=== PATIENT | female | born 1975 | race Caucasian/White ===

== ENCOUNTER → 2018-01-20 16:24 | Outpatient (CLI) | payer MEDICAID, SELFPAY ==
[2018-01-20 17:52] LABS: Hematocrit 43.4 % (37-47); Hemoglobin 14.5 g/dl (12.0-15.0); Mean Corp Hgb Conc 33.4 g/gl (32-36); Mean Corpuscular Hgb 34.5 pg (27.0-32.0); Mean Corpuscular Volume 103.3 fL (81-99); Mean Platelet Vol. 9.4 fl (6.2-12.0); Platelet Count 340 K/mm3 (150-450); RBC Distribution Width CV 13.3 % (11.6-14.6); White Blood Count 10.5 K/mm3 (4.4-11.0)
[2018-01-20 17:56] LABS: Scan Indicated on CBC? Y/N NO
[2018-01-20 18:27] LABS: AST(SGOT) 20 U/L (15-37); Alanine Aminotransfer ALT/SGPT 25 U/L (13-56); Albumin, Serum 4.3 g/dL (3.2-5.0); Alkaline Phosphatase 107 U/L (45-117); Anion Gap 9 (5-15); BUN 12 mg/dL (7-18); BUN/Creat Ratio 14.1 RATIO (10-20); Calcium,Total 9.5 mg/dL (8.5-10.1); Chloride 104 mmol/L (98-107); Creatinine, Serum 0.85 mg/dL (0.55-1.02); EST Glomerular Filtration Rate 77 mL/min (>60); Est Glom Filt Rate - Afr Amer 93 mL/min (>60); Globulin 4.4 g/dL (2.2-4.2); Glucose 127 mg/dL (74-106); Potassium 4.4 mmol/L (3.5-5.1); Protein, Total 8.7 g/dL (6.4-8.2); Sodium Level 141 mmol/L (136-145)
[2018-01-22 20:07] LABS: Absolute CD4 Helper 1794 /uL (359-1519); Basophils (Absolute) 0 x10E3/uL (0.0-0.2); Eosinophils 1 % (Not Estab.); Eosinophils (Absolute) 0.1 x10E3/uL (0.0-0.4); Hematocrit 45.8 % (34.0-46.6); Hemoglobin 14.7 g/dL (11.1-15.9); Immature Granulocytes 0 % (Not Estab.); Lymphs 43 % (Not Estab.); Lymphs (Absolute) 4.6 x10E3/uL (0.7-3.1); MCHC 32.1 g/dL (31.5-35.7); MCV 106 fL (79-97); Monocytes 6 % (Not Estab.); Monocytes (Absolute) 0.6 x10E3/uL (0.1-0.9); Neutrophils 50 % (Not Estab.); Neutrophils (Absolute) 5.4 x10E3/uL (1.4-7.0); Platelets 368 x10E3/uL (150-379); RBC Count 4.32 x10E6/uL (3.77-5.28); RDW 15.1 % (12.3-15.4); WBC Count 10.7 x10E3/uL (3.4-10.8)
[2018-01-23 03:42] LABS: Rapid Plasmin Reagin (RPR) NONREACTIVE (NONREACTIVE)
[2018-01-23 11:33] LABS: Immature Granulocytes Absolute 0 x10E3/uL (0.0-0.1)
[2018-01-24 09:03] LABS: HIV-1 RNA by PCR, Quant. < 20 copies/mL (.)
== END ==
PROVIDERS: Family Provider Family Medicine; PCP Family Medicine; Visit Provider Internal Medicine Infectious Disease
DX: B20 Human immunodeficiency virus [HIV] disease (principal)
CPT/HCPCS: 36415; 80048; 80076; 85027; 86361; 86592; 87536

== ENCOUNTER → 2018-06-23 17:00 | Outpatient (CLI) | payer MEDICAID, SELFPAY ==
--- NOTE | 2018-06-23 17:29 | BI_ITS ---
MAMMOGRAPHY - BILATERAL SCREENING REASON FOR EXAM: Female, 42 years old. Routine annual screening examination. PERTINENT HISTORY: Non-contributory. TECHNIQUE: Digital bilateral breast toro (3D mammographic acquisition) in the CC and MLO projections. 2-D mediolateral oblique (MLO) and craniocaudad (CC) views of both breasts were obtained. CAD: Full Field Digital Mammography with Computer Added Detection was performed. COMPARISON: Comparison is made with prior outside examination dated November 21, 2008. FINDINGS: Breast Composition: The breasts are extremely dense, which lowers the sensitivity of mammography. There are no dominant masses or suspicious calcifications. No other significant abnormalities are identified. There has been no significant change since the prior study. BI/SCREENING MAMM (CAD), BILAT IMPRESSION: Stable bilateral screening mammogram. Yearly follow-up mammogram recommended. (A) ASSESSMENT CATEGORY: BIRADS Category 1: Negative. A letter regarding these results will be sent to the patient by the facility within 30 days. Approximately 10% of breast cancers are not detected by mammography. A normal mammogram should not delay biopsy of a clinically suspicious abnormality. [id number] Electronically Signed: Arthur Rodriguez MD at 8:55 EST , Service support ,
== END ==
PROVIDERS: Family Provider Family Medicine; PCP Family Medicine; Referring Provider Internal Medicine Infectious Disease; Visit Provider Internal Medicine Infectious Disease
DX: Z12.31 Encounter for screening mammogram for malignant neoplasm of breast (principal)
CPT/HCPCS: 77063; 77067

== ENCOUNTER → 2021-10-17 | Outpatient (CLI) | payer MEDICAID, SELFPAY ==
[2021-10-17 15:22] LABS: Hematocrit 40.9 % (37-47); Hemoglobin 13.5 g/dL (12.0-15.0); Mean Corpuscular Hgb 33.9 pg (27.0-32.0); Mean Corpuscular Volume 102.8 fL (81-99); Mean Platelet Vol. 10.1 fl (6.2-12.0); Platelet Count 338 K/mm3 (150-450); RBC Distribution Width CV 12.8 % (11.6-14.6); RBC Distribution Width SD 47.9 fl (35.1-43.9); Red Blood Count 3.98 M/mm3 (4.2-5.4); White Blood Count 12.1 K/mm3 (4.4-11.0)
[2021-10-17 15:50] LABS: Anion Gap 10 (5-15); BUN 7 mg/dL (7-18); Calcium,Total 8.8 mg/dL (8.5-10.1); Chloride 107 mmol/L (98-107); Creatinine, Serum 0.78 mg/dL (0.55-1.02); EST Glomerular Filtration Rate 84 mL/min (>60); Est Glom Filt Rate - Afr Amer 102 mL/min (>60); Glucose 228 mg/dL (74-106); Potassium 3.8 mmol/L (3.5-5.1); Sodium Level 139 mmol/L (136-145)
[2021-10-19 15:09] LABS: Absolute CD4 Helper 1597 /uL (359-1519); Basophils (Absolute) 0.1 x10E3/uL (0.0-0.2); Eosinophils 2 % (Not Estab.); Eosinophils (Absolute) 0.2 x10E3/uL (0.0-0.4); Hemoglobin 13.9 g/dL (11.1-15.9); Immature Granulocytes 0 % (Not Estab.); Lymphs 28 % (Not Estab.); Lymphs (Absolute) 3.2 x10E3/uL (0.7-3.1); MCH 34.8 pg (26.6-33.0); MCHC 33.9 g/dL (31.5-35.7); MCV 103 fL (79-97); Monocytes 5 % (Not Estab.); Monocytes (Absolute) 0.6 x10E3/uL (0.1-0.9); Neutrophils 65 % (Not Estab.); Neutrophils (Absolute) 7.4 x10E3/uL (1.4-7.0); Percent % CD4 Pos. Lymph. 49.9 % (30.8-58.5); Platelets 407 x10E3/uL (150-450); RDW 13.1 % (11.7-15.4); WBC Count 11.5 x10E3/uL (3.4-10.8)
[2021-10-19 16:45] LABS: HIV-1 RNA by PCR, Quant. 30 copies/mL (.); LOG10 HIV-1 RNA 1.477 (.)
[2021-10-19 16:47] LABS: Immature Granulocytes Absolute 0 x10E3/uL (0.0-0.1)
== END | disposition home or self-care (01) ==
LOC: LAB 14:24
PROVIDERS: Referring Provider Internal Medicine Infectious Disease; Visit Provider Internal Medicine Infectious Disease
DX: B20 Human immunodeficiency virus [HIV] disease (principal)
CPT/HCPCS: 36415; 80048; 85027; 86361; 87536

== ENCOUNTER → 2024-05-28 | Outpatient (CLI) | payer MEDICAID, SELFPAY ==
[2024-05-28 16:12] LABS: Anion Gap 2 (5-15); BUN 8 mg/dL (7-18); BUN/Creat Ratio 14.3 RATIO (10-20); Calcium,Total 9.5 mg/dL (8.5-10.1); Chloride 103 mmol/L (98-107); Creatinine, Serum 0.56 mg/dL (0.55-1.02); EST Glomerular Filtration Rate 121 mL/min (>60); Est Glom Filt Rate - Afr Amer 147 mL/min (>60); Glucose 167 mg/dL (74-106); Potassium 4.2 mmol/L (3.5-5.1); Sodium Level 136 mmol/L (136-145)
[2024-05-28 16:28] LABS: Syphilis Antibodies Non-reactive
[2024-05-31 16:08] LABS: Absolute CD4 Helper 1448 /uL (359-1519); Basophils (Absolute) 0.1 x10E3/uL (0.0-0.2); Eosinophils 2 % (Not Estab.); Eosinophils (Absolute) 0.2 x10E3/uL (0.0-0.4); Hematocrit 40.6 % (34.0-46.6); Hemoglobin 13.4 g/dL (11.1-15.9); Immature Granulocytes 1 % (Not Estab.); Immature Granulocytes Absolute 0.1 x10E3/uL (0.0-0.1); Lymphs 27 % (Not Estab.); Lymphs (Absolute) 2.8 x10E3/uL (0.7-3.1); MCH 34.4 pg (26.6-33.0); MCV 104 fL (79-97); Monocytes 8 % (Not Estab.); Monocytes (Absolute) 0.8 x10E3/uL (0.1-0.9); Neutrophils 61 % (Not Estab.); Neutrophils (Absolute) 6.6 x10E3/uL (1.4-7.0); Percent % CD4 Pos. Lymph. 51.7 % (30.8-58.5); Platelets 348 x10E3/uL (150-450); RBC Count 3.89 x10E6/uL (3.77-5.28); RDW 13.7 % (11.7-15.4); WBC Count 10.5 x10E3/uL (3.4-10.8)
[2024-06-01 03:06] LABS: HIV-1 RNA by PCR, Quant. < 20 copies/mL (.)
== END | disposition home or self-care (01) ==
LOC: LAB.FUTURE 14:44 → LAB 14:44
PROVIDERS: Referring Provider Internal Medicine Infectious Disease; Visit Provider Internal Medicine Infectious Disease
DX: Z21 Asymptomatic human immunodeficiency virus [HIV] infection status (principal)
CPT/HCPCS: 36415; 80048; 86361; 86780; 87536

== ENCOUNTER 2024-06-13 19:07 | Emergency (ER) | payer MEDICAID, SELFPAY ==
[2024-06-13 19:07] VITALS: BP 140/84; PULSE 85; RESP 16; TEMP 36.6; O2SAT 100; BMI 20.5
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
[2024-06-13 23:07] VITALS: BP 138/75; PULSE 80; RESP 18; O2SAT 98
--- NOTE | 2024-06-13 23:20 | RAD_ITS ---
INDICATION: Injury/Pain EXAMINATION/TECHNIQUE: X-RAY - XR Spine Lumbar 2 or 3 Views COMPARISON: None. FINDINGS: VERTEBRAE: No fracture or subluxation. Mild degenerative changes. No erosive changes. SOFT TISSUES: Unremarkable. INCLUDED ABDOMEN: Visualized abdomen is unremarkable. RAD/Lumbar Spine 2 or 3 Views IMPRESSION: No fracture or subluxation. Electronically Signed: Gideon Guan DO at 0:41 EST ,
[2024-06-14 00:58] VITALS: BP 132/64; PULSE 76; RESP 18; TEMP 36.9; O2SAT 96
== END 2024-06-14 01:03 | disposition home or self-care (01) ==
PROVIDERS: Emergency Provider Emergency Medicine; Visit Provider Emergency Medicine
DX: S39.012A Strain of muscle, fascia and tendon of lower back, initial encounter (principal); E11.9 Type 2 diabetes mellitus without complications; Y92.410 Unspecified street and highway as the place of occurrence of the external cause; Z90.710 Acquired absence of both cervix and uterus; V40.5XXA Car driver injured in collision with pedestrian or animal in traffic accident, initial encounter
CPT/HCPCS: 72100; 99284

== ENCOUNTER → 2024-11-26 | Outpatient (CLI) | payer MEDICAID, SELFPAY ==
[2024-11-26 11:02] LABS: Hematocrit 36.6 % (37-47); Hemoglobin 12.2 g/dL (12.0-15.0); Mean Corp Hgb Conc 33.3 g/dL (32-36); Mean Corpuscular Volume 103.4 fL (81-99); Mean Platelet Vol. 9.9 fl (6.2-12.0); Platelet Count 294 K/mm3 (150-450); RBC Distribution Width CV 13.5 % (11.6-14.6); RBC Distribution Width SD 51.6 fl (35.1-43.9); Red Blood Count 3.54 M/mm3 (4.2-5.4); White Blood Count 9.3 K/mm3 (4.4-11.0)
[2024-11-26 12:24] LABS: Anion Gap 14 (5-15); BUN 10 mg/dL (4-19); BUN/Creat Ratio 15.3 RATIO (10-20); Calcium,Total 9.0 mg/dL (7.6-11.0); Carbon Dioxide 25.3 mmol/L (21.0-32.0); Chloride 98 mmol/L (98-108); Glucose 308 mg/dL (70-99); Potassium 4.3 mmol/L (3.3-5.1)
[2024-11-26 12:35] LABS: HIV Reactive (Nonreactive)
[2024-11-29 14:08] LABS: Hematocrit 38.1 % (34.0-46.6); Hemoglobin 12.6 g/dL (11.1-15.9); MCH 34.4 pg (26.6-33.0); MCHC 33.1 g/dL (31.5-35.7); MCV 104 fL (79-97); Percent % CD4 Pos. Lymph. 51.2 % (30.8-58.5); RDW 13.7 % (11.7-15.4)
[2024-11-30 04:07] LABS: HIV-1 RNA by PCR, Quant. < 20 copies/mL (.)
== END | disposition home or self-care (01) ==
LOC: LAB 10:39
PROVIDERS: Referring Provider Internal Medicine Infectious Disease; Visit Provider Internal Medicine Infectious Disease
DX: Z21 Asymptomatic human immunodeficiency virus [HIV] infection status (principal)
CPT/HCPCS: 36415; 80048; 85027; 86361; 86703; 87536